=== PATIENT | female | born 1985 | race Caucasian/White ===

== ENCOUNTER → 2021-10-28 14:51 | Outpatient (CLI) | payer OTHER, SELFPAY ==
[2021-10-30 09:16] LABS: Varicella IgG Antibody 3178 index (Immune >165)
== END ==
PROVIDERS: PCP Nurse Practitioner Family; Referring Provider Family Medicine; Visit Provider Family Medicine
DX: O09.521 Supervision of elderly multigravida, first trimester (principal); Z3A.00 Weeks of gestation of pregnancy not specified
CPT/HCPCS: 36415; 86787; 87086

== ENCOUNTER → 2021-12-14 14:50 | Outpatient (CLI) | payer OTHER, SELFPAY ==
--- NOTE | 2021-12-14 15:11 | DIET.CONS ---
Dietary Consultation Note Assessment: 36y F identical twin currently at 18w gestation on first - single fetus, due May 15. Hx: Pt getting nauseous if with empty stomach. Pt not too fatigued, but noticing SOB when walking up hill. Taking supplement after lunch, was taking in morning but was making her nauseous. No constipation, 1 BM easy to pass daily. Pt cooks a lot with . Eating a few Tums each day because of new heartburn, pernell from spicy foods which she loves when not . 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 Ht: 5'8 Wt: 237# UBW: 230# pre- but under 200# prior to phD- desk and stress related Prior to phD program, pt was very active and exercised almost every day. Pt states increase in sedentary time at work desk and stress of advanced degree programs increased body weight. Was trying to eat 2-3meals no snacks daily, was exercising pre-: swim 5d/w and ran Pre- Food Recall: wakes 8-9am black coffee then move to lunch 12:30pm: leftovers D (5:30pm): curries, pasta, chicken cacciatore, carnitas, fish Food Recall: if any caffeine 8 or 12 oz deo B: cheerios with banana or oatmeal or quiche but not hungry then frequent small snacks through day: nuts, instant kayla with cooked lunchmeat hb egg and dereje Nutrients of Concern and Supplement review: Calcium: sliced cheese- Liguori cheddar or pauline kika, yogurt or glass milk Iron: 27mg in supp omega 3/DHA/ALA: taking stand alone supp and enjoys salmon and nuts Iodine: adequate in supp Nutrition Diagnosis: overweight in r/t undesirable coping mechanisms and physical inactivity aeb pt gained 30# in phD program due to stress eating and reduced physical activity, pt with 7# weight gain at 18w. Interventions: 1. Provided calcium content of foods handout with reccs to achieve 1000mg calcium per day through food and if needed supplements. Pt getting some calcium from Tums currently. Pt will log food for a few days and decide if she needs to supplement at all. 2. Discussed options for physical activity in such as walking (pernell 10 min after meals) and yoga. 3. Discussed moving back towards 3 meal and 1 snack eating pattern now that her nausea is lessening. Encouraged intake F/V and other fiber filled plant based foods. 4. Discussed limiting sodium intake to no more than 600mg at meals and having protein with every meal and snack. Monitoring/Evaluations: f/u as needed, 26w GTT to test for GDM - calcium Electronically Signed by: Ruth Urena 12/14/21 15:11 Clinical Dietitian [address] [id number]
== END ==
PROVIDERS: PCP Nurse Practitioner Family; Referring Provider Family Medicine; Visit Provider Family Medicine
DX: Z23 Encounter for immunization (principal)
CPT/HCPCS: 97802

== ENCOUNTER → 2022-01-21 15:30 | Outpatient (CLI) | payer OTHER, SELFPAY ==
--- NOTE | 2022-01-21 15:31 | DI.US.S_ITS ---
PROCEDURE: US OB FOLLOW UP INDICATIONS: Unable to visualize heart OUTSIDE/PRIOR DATING DATA: Last menstrual period (LMP): Known. LMP-based estimated date of delivery (KAL): Unknown. First dating scan (date and location): 01/01/2022. Estimated date of delivery (KAL) from first dating scan: 05/30/2022 TECHNIQUE: Real-time scanning was performed of the fetus, with image documentation and biometric measurements. Endovaginal scanning: Non COMPARISON: None. FINDINGS: General: A single living intrauterine gestation is present. Presentation: Vertex. Placenta: Placental position is posterior , without previa. Single deepest vertical pocket is 3.6 cm. heart rate: 152 beats per minute. Maternal cervical canal: Nonvisualized Anatomic survey: Normal cardiac outflow tracks are well visualized IMPRESSION: Single live intrauterine . heart rate 152 beats per minute Normal cardiac outflow tracts are well visualized Approved by: Jose Eduardo Castaneda M.D. on 01/21/2022 at 17:59
== END ==
PROVIDERS: PCP Nurse Practitioner Family; Referring Provider Family Medicine; Visit Provider Family Medicine
DX: Z36.2 Encounter for other antenatal screening follow-up (principal)
CPT/HCPCS: 76816

== ENCOUNTER → 2022-02-15 14:07 | Outpatient (CLI) | payer OTHER, SELFPAY ==
[2022-02-15 18:17] LABS: Add Manual Diff / Slide Review NO; Basophils Absolute Auto 0 /uL (0-100); Basophils Percent Auto 0.3 % (0-2); Eosinophils Absolute Auto 200 /uL (0-450); Eosinophils Percent Auto 1.1 % (2-4); Hematocrit 35.3 % (36-46); Hemoglobin 11.9 g/dL (12.0-16.0); Lymphocytes Absolute Auto 2000 /uL (1100-4500); Lymphocytes Percent Auto 14.1 % (25-40); Mean Corpuscular HGB Conc 33.8 % (30-36); Mean Corpuscular Hemoglobin 30.1 PG (26-34); Monocytes Absolute Auto 600 /uL (0-900); Neutrophils Absolute Auto 11300 /uL (1500-7000); Neutrophils Percent Auto 80.5 % (50-75); Platelet Count 324 X10^3/uL (150-400); Red Blood Cell Count 3.97 X10^6/uL (4.0-5.2); Red Cell Distribution Width 13.3 % (11.6-14.8)
[2022-02-15 18:41] LABS: GTT (PREG) 1 Hour PP 50gm Dose 104 mg/dL (76-139)
== END ==
PROVIDERS: PCP Nurse Practitioner Family; Referring Provider Family Medicine; Visit Provider Family Medicine
DX: Z34.82 Encounter for supervision of other normal pregnancy, second trimester (principal); Z3A.23 23 weeks gestation of pregnancy
CPT/HCPCS: 36415; 82950; 85025

== ENCOUNTER → 2022-04-16 12:03 | Outpatient (CLI) | payer OTHER, SELFPAY ==
[2022-04-17 12:51] LABS: Strep Grp B PCR NEG for Grp B Strep
== END ==
PROVIDERS: PCP Nurse Practitioner Family; Visit Provider Family Medicine
DX: Z36.85 Encounter for antenatal screening for Streptococcus B (principal)
CPT/HCPCS: 87653

== ENCOUNTER 2022-05-19 10:55 | Outpatient (CLI) | payer OTHER, SELFPAY ==
--- NOTE | 2022-05-19 11:31 | DI.US.S_ITS ---
PROCEDURE: US OB LIMITED INDICATIONS: POST DATES; EFW, MARGE OUTSIDE/PRIOR DATING DATA: Last menstrual period (LMP): Unknown. LMP-based estimated date of delivery (KAL): Not applicable. First dating scan (date and location): 01/01/2023. Estimated date of delivery (KAL) from first dating scan: 05/10/2022. The calculations are made using the sonographic KAL of 05/10/2022. TECHNIQUE: Real-time scanning was performed of the fetus, with image documentation and biometric measurements. Endovaginal scanning: Not performed COMPARISON: None. FINDINGS: General: A single living intrauterine gestation is present. Presentation: Vertex. Placenta: Placental position is left fundal , without previa. Amniotic fluid index: 6.5 cm, normal range is 5-24 cm. Single deepest vertical pocket is 4.2 cm. heart rate: 168 beats per minute. Maternal cervical canal: 4.2 cm long. Normal lower limit is 2.5 cm. biometrics: Biparietal diameter: 9.4 centimeters, 38 weeks Head circumference: 34.4 centimeters, 39 weeks 6 days Abdominal circumference: 35 centimeters, 39 weeks Femur length: 7.6 centimeters, 38 weeks 5 days Clinically estimated gestational age: 41 weeks 2 days Composite gestational age from present scan: 38 weeks 6 days Estimated weight and percentile: 3621 grams. Percentage unavailable. Other: Not applicable. IMPRESSION: Single living intrauterine at 41 weeks 2 days, KAL of 08/03/2021. MARGE borderline low, measuring 6.5 centimeters, max pocket 4.2 centimeters. Estimated weight 3621 grams. We strive to produce accurate, complete, and clear reports of imaging services. To assist us in improving patient care, this report was composed using standard report templates and voice recognition software. Therefore, it may contain abnormal punctuation, insertions and/or omissions. Occasional wrong-word or sound-alike substitutions may occur. Though we review the report and make efforts to correct it, we do recommend that the report be read carefully in proper context to recognize any text inaccuracies. Dictated by: Cachorro Quezada M.D. on 05/19/2022 at 12:30 Approved by: Cachorro Quezada M.D. on 05/19/2022 at 12:35
--- NOTE | 2022-05-19 11:49 | P.TNLD_ITS ---
Visit Information Visit Information Date of evaluation: 05/19/22 Primary OB Provider: Kristin Verde Reason for Evaluation: Yes non-stress test non-stress test reason: other (post- dates) Comments/Additional reasons for admission: 37yo at 40w6d here for post-dates NST. She is feeling her baby move regularly. No LOF, vaginal bleeding, contractions. Fundal height was noted to be 35cm in clinic today as well. [facility] Medical History Asthma Depression Eczema Family history of identical twins Rib injury Shingles Surgical History [place] teeth extracted Family History Grandmother Uterine cancer Grandfather Heart disease Heart attack Mother Hypotension Osteopenia Grandmother Depression Glaucoma Quadriplegia Grandfather Parkinsons disease Father Depression Arthritis Sister Asthma Grandmother Bipolar disorder Social History marital status: number of children: 0 household members: spouse lives independently: Yes housing: house pets and animals: Yes (1 dog) education level: other occupational status: employed current occupational exposures/hazards: No special vini needs: No travel history: recent seatbelt use: always helmet use: Yes water heater temp set < 120 deg: Yes working smoke detector in home: Yes fire extinguisher in home: Yes carbon monox detector in home: Yes firearms in home: No do you feel safe at home: Yes Smoking Status: Never smoker second hand exposure: No alcohol intake: former substance use type: marijuana during the past year weight has: increased > 10 lbs well-balanced diet: daily or most days daily servings fruits/ve or more times/day caffeine: Yes Type(s) of exercise: bicycling, swimming, other and yoga frequency: 3-4 times per week Evaluation Evaluation Baseline heart rate: 120 Variability: Moderate (11-25) monitor accelerations: Present Monitor Decelerations: Absent Category of Tracing: Reactive Diagnosis, Plan/Disposition Final Diagnosis (1) Post-dates : Status: Acute (2) Size of fetus inconsistent with dates in third trimester: Status: Acute Plan/Disposition Plan: 37yo at 40w6d here for NST for post-dates. Also obtaining growth u/s for size < dates and post-dates. NST reassuring. Growth u/s with appropriate growth, MARGE 6.5. Recommend repeat NST and MARGE on 05/21. Stable for discharge home. OB Disposition: home
== END 2022-05-19 11:45 | disposition home or self-care (01) ==
LOC: OB 05-24 15:53
PROVIDERS: PCP Nurse Practitioner Family; Referring Provider Family Medicine; Visit Provider Family Medicine
DX: O48.0 Post-term pregnancy (principal); O26.843 Uterine size-date discrepancy, third trimester; Z3A.40 40 weeks gestation of pregnancy
CPT/HCPCS: 59025; 76815; G0378; G0379

== ENCOUNTER 2022-05-21 08:57 | Outpatient (CLI) | payer OTHER, SELFPAY ==
--- NOTE | 2022-05-21 09:22 | DI.US.S_ITS ---
PROCEDURE: US OB LIMITED INDICATIONS: 41 weeks gestation, MARGE OUTSIDE/PRIOR DATING DATA: Last menstrual period (LMP): Unknown LMP-based estimated date of delivery (KAL): Under known First dating scan (date and location): 01/01/2022 Estimated date of delivery (KAL) from first dating scan: 05/10/2022 The calculations are made using the working KAL of 05/10/2022 TECHNIQUE: Real-time scanning was performed of the fetus, with image documentation and biometric measurements. Endovaginal scanning: Not indicated COMPARISON: [facility], , OB LIMITED, 05/19/2022, 11:55. FINDINGS: General: A single living intrauterine gestation is present. Presentation: Vertex Amniotic fluid index: 9.0 cm, normal range is 5-24 cm. Single deepest vertical pocket is 3.5 cm. heart rate: 123 beats per minute. Maternal cervical canal: 1.9 cm long. Normal lower limit is 2.5 cm. Clinically estimated gestational age: 41 weeks, 4 days. Other: Not applicable. IMPRESSION: Single live intrauterine gestation with fetus in vertex presentation. heart rate is 123 beats per minute. MARGE equals 9.0 cm with a deepest pocket measures 3.5 cm in size. We strive to produce accurate, complete, and clear reports of imaging services. To assist us in improving patient care, this report was composed using standard report templates and voice recognition software. Therefore, it may contain abnormal punctuation, insertions and/or omissions. Occasional wrong-word or sound-alike substitutions may occur. Though we review the report and make efforts to correct it, we do recommend that the report be read carefully in proper context to recognize any text inaccuracies. Dictated by: Jemal Lin M.D. on 05/21/2022 at 10:26 Approved by: Jemal Lin M.D. on 05/21/2022 at 10:28
--- NOTE | 2022-05-21 10:30 | P.TNLD_ITS ---
Visit Information Visit Information Date of evaluation: 05/21/22 Reason for Evaluation: Yes non-stress test Comments/Additional reasons for admission: 37yo at 41w1d here for post-dates NST. She is feeling her baby move regularly. No LOF, vaginal bleeding, consistent contractions. She did lose her mucus plug. [facility] Medical History Asthma Depression Eczema Family history of identical twins Rib injury Shingles Surgical History [place] teeth extracted Family History Grandmother Uterine cancer Grandfather Heart disease Heart attack Mother Hypotension Osteopenia Grandmother Depression Glaucoma Quadriplegia Grandfather Parkinsons disease Father Depression Arthritis Sister Asthma Grandmother Bipolar disorder Social History marital status: number of children: 0 household members: spouse lives independently: Yes housing: house pets and animals: Yes (1 dog) education level: other occupational status: employed current occupational exposures/hazards: No special vini needs: No travel history: recent seatbelt use: always helmet use: Yes water heater temp set < 120 deg: Yes working smoke detector in home: Yes fire extinguisher in home: Yes carbon monox detector in home: Yes firearms in home: No do you feel safe at home: Yes Smoking Status: Never smoker second hand exposure: No alcohol intake: former substance use type: marijuana during the past year weight has: increased > 10 lbs well-balanced diet: daily or most days daily servings fruits/ve or more times/day caffeine: Yes Type(s) of exercise: bicycling, swimming, other and yoga frequency: 3-4 times per week Evaluation Evaluation Baseline heart rate: 150 Variability: Moderate (11-25) monitor accelerations: Present Monitor Decelerations: Absent Diagnosis, Plan/Disposition Final Diagnosis (1) Post-dates : Status: Acute Plan/Disposition Plan: 37yo at 41w1d here for post-dates NST. NST reactive. MARGE improved from 2 days ago. Continue with plan for IOL on 05/23 if no labor prior. OB Disposition: home
== END 2022-05-21 10:30 | disposition home or self-care (01) ==
LOC: LABOR 12:35 → OB 05-24 15:51
PROVIDERS: PCP Nurse Practitioner Family; Referring Provider Family Medicine; Visit Provider Family Medicine
DX: O48.0 Post-term pregnancy (principal); Z3A.41 41 weeks gestation of pregnancy
CPT/HCPCS: 59025; 76815; G0378; G0379

== ENCOUNTER 2022-05-23 19:51 | Inpatient (IN) | payer OTHER, SELFPAY ==
[2022-05-23 20:38] VITALS: BP 116/68
[2022-05-23 21:48] LABS: Add Manual Diff / Slide Review NO; Basophils Absolute Auto 0 /uL (0-100); Basophils Percent Auto 0.3 % (0-2); Eosinophils Absolute Auto 100 /uL (0-450); Eosinophils Percent Auto 0.9 % (2-4); Hematocrit 33.2 % (36-46); Hemoglobin 11.4 g/dL (12.0-16.0); Lymphocytes Absolute Auto 2200 /uL (1100-4500); Lymphocytes Percent Auto 18.2 % (25-40); Mean Corpuscular HGB Conc 34.3 % (30-36); Mean Corpuscular Hemoglobin 30.8 PG (26-34); Mean Corpuscular Volume 89.9 fL (80-100); Monocytes Absolute Auto 600 /uL (0-900); Neutrophils Absolute Auto 9200 /uL (1500-7000); Neutrophils Percent Auto 75.6 % (50-75); Platelet Count 244 X10^3/uL (150-400); Red Blood Cell Count 3.69 X10^6/uL (4.0-5.2); Red Cell Distribution Width 13.2 % (11.6-14.8); White Blood Cell Count 12.1 X10^3/uL (4.5-11.0)
[2022-05-23] MEDS: miSOPROStoL 25 MCG TABLET VAG (22:14)
[2022-05-24] VITALS (12 sets, daily range): BP systolic 72–130; BP diastolic 52–94; PULSE 89–119; RESP 14–20; TEMP 35.9; O2SAT 96–100
--- NOTE | 2022-05-24 | PATH_ITS ---
[facility] Accession Number: [id number] No. of containers..01 Tissue . 01 Material submitted: . placenta - PLACENTA . 01 Diagnosis: Placenta, Delivery: Mature renee placenta (506 grams) with single infarct and intervillous thrombus and focal perivillous fibrin deposition. - Negative for villitis and neoplasia. Trivascular umbilical cord. - Negative for funisitis, thrombosis, and true knots. membranes negative for chorioamnionitis and meconium staining. MRV 05/27/2022 1740 Local . 01 Electronically signed: . Leyla Alejo MD, Pathologist NPI- [id number] . 01 Gross description: . The specimen is received in formalin labeled with the patient's name, , and placenta, and consists of a discoid renee placenta with a trimmed weight 506 grams and measuring 20.7 x 17.8 x 1.4 cm with no accessory lobes identified. . The membranes are acevedo and translucent with no acevedo areas of thickening grossly identified. The membranes insert and are diffusely ruptured at the margin. . The umbilical cord measures 47.9 cm in length by 1.0 cm in average diameter. The cord inserts centrally and has a leftward coil with an index of approximately 2 twists per 5 cm. Sectioning reveals unremarkable trivascular architecture with no knots or lesions grossly identified. . The surface is blue-hamm with normal arborizing vasculature and no areas of discoloration or lesions identified. . The maternal surface is apparently complete with no areas of discoloration of adherent hemorrhage identified. Sectioning reveals a pale acevedo firm area located eccentrically measuring 2.1 x 1.7 x 0.9 cm. This discolored area occupies less than 10% of the cut surface. The remaining cut surface is red-brown and spongy. . Manager Emergency Department sections are submitted as follows: A1: Cord. A2: Membrane roll. A3-A4: Full thickness cut surface discoloration. A5-A7: Full thickness central normal sections. ([id number]) /MRV 05/25/20224 Local . 01 Pathologist provided ICD-10: O43.90 . 01 CPT . 081487 Specimen Comment: A courtesy copy of this report has been sent to [phone] Performed at: 01 [facility] [address] [place] [id number] MD Matthew Guzman MD Phone: [phone]
[2022-05-24] MEDS: miSOPROStoL 25 MCG TABLET VAG (03:06)
[2022-05-24] MEDS: LACTATED RINGERS 1,000 ML 100 ML IV (09:05)
[2022-05-24] MEDS: OXYTOCIN PREMIX 30 UNIT/500 ML PLAST..BAG IV (09:05)
--- NOTE | 2022-05-24 12:22 | P.HPOB_ITS ---
OB HPI Date/Time Date of admission: 05/23/22 Date Patient Seen: 05/24/22 History of Present Condition Chief complaint: KAL Calculator Estimated Delivery Date Method Current WG Current Estimate 05/13/22 Manual 41w 4d Final KAL - MANOLO Other Estimates 05/13/22 LMP (Certain) 41w 4d 05/18/22 Ultrasound #1 40w 6d Estimated Gestational Age (weeks): 41w4d : 1 Para: 0 Narrative: Pt is a 37yo at 41w4d here for post-dates IOL. Pt is feeling her baby move regularly. No LOF. Minimal spotting after cytotec last night. The pts has been uncomplicated. care: good care, initiated at week # (11) and pounds weight gain (32) Dating criteria OB: LMP confirmed by 1st trimester US Ultrasounds: normal 1st trimester US and normal mid trimester US Obstetrical complications: none Medical complications OB: none Preadmission Labs Last OB Lab Results: Blood Type A Negative 05/23/22 21:25 Antibody Screen Negative 05/23/22 21:25 Hematocrit 33.2 % (36-46) L 05/23/22 21:25 Hemoglobin 11.4 g/dL (12.0-16.0) L 05/23/22 21:25 Varicella-Zoster IgG Antibody 3178 index (Immune >165) 10/28/21 15:05 Glucose 1 Hour 104 mg/dL (76-139) 02/15/22 15:45 Group B Streptococcus (PCR) Neg for grp b strep 04/16/22 12:03 Genetic Screens: Cell-free DNA: Normal Evaluation Evaluation Baseline heart rate: 145 Variability: Moderate (11-25) monitor accelerations: Present Monitor Decelerations: Absent Contraction Frequency (minutes): 3 Uterine Contraction Intensity: Strong/Firm Status: Category l Dilation (cm): 3 Effacement (%): 90 Dilation: 3-4 cm Effacement: >/=80% station: -1 Position of cervix: posterior Consistency: soft Garcia score: 9 PFSH Medical History Asthma Depression Eczema Family history of identical twins Rib injury Shingles Surgical History [place] teeth extracted Family History Grandmother Uterine cancer Grandfather Heart disease Heart attack Mother Hypotension Osteopenia Grandmother Depression Glaucoma Quadriplegia Grandfather Parkinsons disease Father Depression Arthritis Sister Asthma Grandmother Bipolar disorder Social History marital status: number of children: 0 household members: spouse lives independently: Yes housing: house pets and animals: Yes (1 dog) education level: other occupational status: employed current occupational exposures/hazards: No special vini needs: No travel history: recent seatbelt use: always helmet use: Yes water heater temp set < 120 deg: Yes working smoke detector in home: Yes fire extinguisher in home: Yes carbon monox detector in home: Yes firearms in home: No do you feel safe at home: Yes Smoking Status: Never smoker second hand exposure: No alcohol intake: former substance use type: marijuana during the past year weight has: increased > 10 lbs well-balanced diet: daily or most days daily servings fruits/ve or more times/day caffeine: Yes Type(s) of exercise: bicycling, swimming, other and yoga frequency: 3-4 times per week Meds Home Medications and Allergies Home Medications Medication Instructions Recorded Confirmed Type fluticasone 250 mcg-salmeterol 50 1 inh inhalation BID 10/19/21 05/23/22 History mcg/dose blistr powdr for inhalation prenat.vits,cassandra,[id number] 1 tab PO DAILY 10/19/21 05/23/22 History Allergies Allergy/AdvReac Type Severity Reaction Status Date / Time Sulfa (Sulfonamide Allergy Severe Anaphylaxis Verified 05/23/22 20:35 Antibiotics) Penicillins Allergy Intermediate Rash Verified 05/23/22 20:35 Opioids - Morphine Analogues AdvReac Intermediate Vomiting Verified 05/23/22 20:35 OB Exam Narrative Exam Narrative: Gen: NAD, sitting comfortably in bed, appears well CV: RRR, no murmurs Resp: clear to auscultation bilaterally Abd: soft, nontender, gravid Ext: no edema Objective Labs 05/23/22 21:25 Labs: Laboratory Results - last 24 hr 05/23/22 05/23/22 21:25 21:25 WBC 12.1 H RBC 3.69 L Hgb 11.4 L Hct 33.2 L MCV 89.9 MCH 30.8 MCHC 34.3 RDW 13.2 Plt Count 244 Neut % (Auto) 75.6 H Lymph % (Auto) 18.2 L [place] % (Auto) 5.0 Eos % (Auto) 0.9 L Baso % (Auto) 0.3 Neut # (Auto) 9200 H Lymph # (Auto) 2200 [place] # (Auto) 600 Eos # (Auto) 100 Baso # (Auto) 0 Blood Type A Negative Antibody Screen Negative Assessment and Plan Assessment and Plan Assessment and Plan narrative: 37yo at 41w4d here for post-dates IOL. uncomplicated. Rh negative, GBS negative. - Expectant management, anticipate - FHT reassuring - Cytotec x2 last night. AROM performed this morning after informed consent with clear fluid. Plan to initiate pitocin. - Natural methods for pain control
[2022-05-24] MEDS: fentaNYL 100 MCG/2 ML INJ 50 MCG IV (15:57)
--- NOTE | 2022-05-24 16:27 | PM.PREOP ---
Pre-operative Note Interval Note History & Physical reviewed/Exam performed by Physician: Yes Changes to H&P: No
[2022-05-24 16:28] LABS: Hematocrit 32.4 % (36-46); Hemoglobin 10.9 g/dL (12.0-16.0)
[2022-05-24] MEDS: CEFAZOLIN 2 GM/100 ML PREMIX 100 ML IV (16:40)
--- NOTE | 2022-05-24 16:44 | SUR.OPER ---
Lithotomy on padded OR bed, head on pillow, arms secured on padded arm boards at <90 degrees abduction. Legs secured in padded yellow fins stirrups.
[2022-05-24] MEDS: LACTATED RINGERS 1,000 ML 999 ML IV (16:53)
[2022-05-24] MEDS: METHYLERGONOVINE 0.2 MG/ML VIAL IM (16:59)
--- NOTE | 2022-05-24 17:08 | SUR.OPER ---
Bakri balloon with 250mL of NaCl inserted in uterus during surgery.
[2022-05-24] MEDS: ONDANSETRON 4 MG/2 ML INJ IV (17:48)
--- NOTE | 2022-05-24 17:54 | PM.GYNOP.1 ---
Operative Date/Time/Diagnoses Date of procedure: 05/24/22 Time of procedure: 17:54 Pre-op diagnosis: Uterine inversion Retained placenta Post-op diagnosis: same Procedure & Clinicians Procedure: Procedures Operation Date: 05/24/22 17:15 Actual Procedure Side Surgeon p Dilation and Curettage Dipika Madrigal MD Replacement of inverted uterus Suction D&C Indications: Uterine inversion Retained placenta Surgeon: Dipika Madrigal Jet Dyeing Machine Operator: Kristin Verde Anesthesia Type: General Operative Notes Findings: Membranes stuck to the fundus of the uterus. The uterus was still inverted, but inside the vagina Closure Type: not applicable Specimen(s): products of conception (membranes) Applied: catheter (Cifuetnes placed at end of the procedure), drain(s) (Bakri balloon placed) and other (Betadine-moistened vaginal packing) Estimated blood loss (mL): 800 Blood products transfused: packed red blood cells (2 units) Procedure in detail: The patient was taken emergently to the operating room due to uterine inversion. After general endotracheal anesthesia was achieved, the patient was placed in the dorsal lithotomy position, and prepped and draped in the usual sterile fashion. The bladder was emptied with a red rubber catheter. The uterus was exteriorized outside the vagina the membranes that could be visualized were removed with a ring forcep. A ring forceps with a moistened lap sponge was then placed in the middle of the fundus of the uterus and with pressure behind the pubic symphysis, the uterus was slowly pushed back into the uterus and the inversion was reversed. A # 12 plastic curette then passed easily into the endometrial cavity. Several passes with suction revealed some membranes and clots. A Bakri balloon was placed and filled with 200 cc of sterile water. Due to the cervix being so dilated, a Betadine moistened vaginal packing was placed to keep the Bakri balloon inside the uterus. This was connected to a grenade to keep track of drainage. A second-degree vaginal/perineal laceration and a right labial first-degree laceration were repaired in the usual fashion. Hemostasis was achieved. There was 800 cc of blood loss including clots that were in the vagina when the patient was prepped. 2 units of packed red blood cells were given in the operating room. Sponge, lap, and instrument counts were correct x2. Complications: none Post-operative Condition: stable Disposition: PACU Plan for aftercare: To the Center after recovery
[2022-05-24] MEDS: fentaNYL 100 MCG/2 ML INJ IV (18:09)
[2022-05-24 18:56] LABS: Add Manual Diff / Slide Review NO; Basophils Absolute Auto 100 /uL (0-100); Basophils Percent Auto 0.3 % (0-2); Eosinophils Absolute Auto 0 /uL (0-450); Hematocrit 32.8 % (36-46); Lymphocytes Absolute Auto 700 /uL (1100-4500); Lymphocytes Percent Auto 2.6 % (25-40); Mean Corpuscular HGB Conc 33.7 % (30-36); Mean Corpuscular Hemoglobin 29.8 PG (26-34); Mean Corpuscular Volume 88.6 fL (80-100); Monocytes Absolute Auto 600 /uL (0-900); Neutrophils Absolute Auto 27600 /uL (1500-7000); Neutrophils Percent Auto 95.1 % (50-75); Platelet Count 250 X10^3/uL (150-400); Red Cell Distribution Width 13.9 % (11.6-14.8)
--- NOTE | 2022-05-24 19:51 | P.PCNOB_ITS ---
Labor & Delivery Delivery date: 05/24/22 Cervical ripening method: per misoprostal protocol Induction method: AROM Delivery augmentation: pitocin Delivery monitor: external FHT and external uterine Route of delivery: Episiotomy description: None L&D Laceration Description: Perineal - 2nd Degree and Labial (right) Quantitative Blood Loss: 1,500 Anesthesia Type: None Narrative: PROCEDURE: at 41w4d presented for post-dates IOL and was admitted to Labor and Delivery. She received cytotec. AROM was then performed with clear fluid at 9:11am. Pitocin was initiated, and then discontinued quickly due to adequate contractions. The patient progressed through the 1st stage over 4 hours. Pain was controlled with natural methods. The patient progressed through the 2nd stage over 1 hour and delivered a viable male with APGARs 9/9 at 15:35 via . Nuchal cord x1 was reduced at the perineum. The cord was cut and clamped after it stopped pulsating. Gentle traction was applied to the umbilical cord, with counterpressure on the uterus. The placenta appeared to be delivering from the vagina, however it was noted that it remained attached to an inverted uterus. The pt was initiated on nitrous oxide. Attempted to removed the placenta from the uterus, however was not able to create a plane for dissection. Where the placenta had been probed then began to abrupt with a significant hematoma forming. Dr Madrigal was consulted urgently. The hematoma was then opened, with 1500cc of blood produced. A plane for placental removal was then noted. The placenta was then removed, however in fragments, with portions of amniotic membrane still attached to the uterus. The pt was given 50mcg of Fentanyl. Direct pressure was applied to the fundus of the uterus, and the uterus was pushed back into the abdomen in an attempt to revert it to correct orientation. Unfortunately, the uterus returned to the abdomen, however remained inverted. The decision was then made to go to the OR to reduce the inversion, and perform D&C for removal of the amniotic membranes/uterine remna nts. The perineum and vagina were inspected with 2nd degree perineal and right labial lacerations that were repaired in the OR. Due to the significant volume of blood loss, 2 Units of PRBCs were ordered, one of which was given prior to arrival in the OR. The pt was feeling lightheaded and noted to be tachycardic in the 110s. Her BP remained > 90 systolic. She was given IVF bolus as well. She was stable upon transfer to the OR. Needle and sponge counts were correct.? The vagina was inspected and no items were left in situ. PREPROCEDURE DIAGNOSIS: Intrauterine at 41w4d GBS negative RH negative POSTPROCEDURE DIAGNOSIS: Intrauterine at 41w4d, delivered Same as preprocedure Retained products of conception Uterine inversion hemorrhage Baby 1: Infant gender: Male Presentation: vertex Position: Left Occiput Anterior Cord Vessel Description: 3 Vessels and Nuchal Cord score (1 min): 9 score (5 min): 9 weight: 8 lb 1.032 oz
[2022-05-24] MEDS: KETOROLAC 30 MG/ML VIAL IV (20:22)
[2022-05-24] MEDS: ACETAMINOPHEN 325 MG TABLET 650 MG PO (20:37)
[2022-05-25] MEDS: KETOROLAC 30 MG/ML VIAL IV ×2 (02:47→08:45)
[2022-05-25] MEDS: ACETAMINOPHEN 325 MG TABLET 650 MG PO ×4 (02:48→21:29)
[2022-05-25 06:12] LABS: Add Manual Diff / Slide Review NO; Basophils Absolute Auto 0 /uL (0-100); Basophils Percent Auto 0.2 % (0-2); Eosinophils Absolute Auto 0 /uL (0-450); Hematocrit 21.7 % (36-46); Hemoglobin 7.3 g/dL (12.0-16.0); Lymphocytes Absolute Auto 1300 /uL (1100-4500); Lymphocytes Percent Auto 6.9 % (25-40); Mean Corpuscular HGB Conc 33.8 % (30-36); Mean Corpuscular Hemoglobin 30.2 PG (26-34); Mean Corpuscular Volume 89.3 fL (80-100); Monocytes Absolute Auto 900 /uL (0-900); Monocytes Percent Auto 4.6 % (3-14); Neutrophils Absolute Auto 17100 /uL (1500-7000); Neutrophils Percent Auto 88.3 % (50-75); Platelet Count 185 X10^3/uL (150-400); Red Blood Cell Count 2.43 X10^6/uL (4.0-5.2); Red Cell Distribution Width 14.2 % (11.6-14.8); White Blood Cell Count 19.4 X10^3/uL (4.5-11.0)
[2022-05-25] MEDS: PRENATAL VIT,CALC/IRON/FOLIC 1 TABLET 1 TAB PO (08:46)
[2022-05-25] MEDS: DOCUSATE 100 MG CAPSULE PO ×2 (08:46→21:29)
[2022-05-25] MEDS: OXYTOCIN PREMIX 30 UNIT/500 ML PLAST..BAG 200 UNIT IV (08:47)
--- NOTE | 2022-05-25 14:58 | P.PNOB_ITS ---
Subjective - OB Subjective Date Patient Seen: 05/25/22 Interval history: The pt reports that she is doing well overall. Her pain has been well controlled. She has not yet urinated due to thacker in place, and has not yet passed flatus. She has not yet ambulated due to thacker and Bakri. She is with improving latch, and is happy with her progress there. Exam Vital Signs (past 8 hours): Oxygen Delivery Method Room Air Narrative Exam Narrative: Gen: NAD, sitting comfortably in bed, appears well CV: RRR, no murmurs Resp: clear to auscultation bilaterally Abd: soft, appropriately tender, fundus firm and below the umbilicus, nondistended Ext: no edema Objective Labs 05/25/22 05:50 Labs: Laboratory Results - last 24 hr 05/23/22 05/24/22 05/24/22 21:25 16:20 18:50 WBC 29.0 H D RBC 3.70 L Hgb 10.9 L 11.0 L Hct 32.4 L 32.8 L MCV 88.6 MCH 29.8 MCHC 33.7 RDW 13.9 Plt Count 250 Neut % (Auto) 95.1 H Lymph % (Auto) 2.6 L Duval % (Auto) 2.0 L Eos % (Auto) 0.0 L Baso % (Auto) 0.3 Neut # (Auto) 62354 H Lymph # (Auto) 700 L Duval # (Auto) 600 Eos # (Auto) 0 Baso # (Auto) 100 Blood Type A Negative Antibody Screen Negative Crossmatch See Detail 05/25/22 05:50 WBC 19.4 H RBC 2.43 L Hgb 7.3 L Hct 21.7 L MCV 89.3 MCH 30.2 MCHC 33.8 RDW 14.2 Plt Count 185 Neut % (Auto) 88.3 H Lymph % (Auto) 6.9 L [place] % (Auto) 4.6 Eos % (Auto) 0.0 L Baso % (Auto) 0.2 Neut # (Auto) 84602 H Lymph # (Auto) 1300 Duval # (Auto) 900 Eos # (Auto) 0 Baso # (Auto) 0 Blood Type Antibody Screen Crossmatch Assessment & Plan Plan Comments: Pt is a 37yo PPD#1 s/p with uterine inversion and retained POC, requi ring correction of uterine inversion and D&C in the OR after delivery, with resultant hemorrhage. Bakri placed after uterus replaced with minimal output, only approximately 20cc. H/H with significant drop after 2 units PRBCs, however does not require repeat transfusion. Pt is feeling r emarkably well. - Plan to deflate Bakri, 30cc/hr, while running pitocin at 100cc/hr in 30 unit/1L bag - Continue thacker until after Bakri removed and bleeding shown to be stable - Repeat tomorrow morning - Continue support Time Spent With Patient Time: Total time spent is greater than 50% in coordination of care (as documented) at patient's floor/unit and/or counseling patient: Time with patient: 25 - 35 minutes
[2022-05-25] MEDS: DERMOPLAST SPRAY 20% 60 ML 1 SPRAY TOP (21:28)
[2022-05-25] MEDS: IBUPROFEN 600 MG TABLET PO (21:28)
[2022-05-26] MEDS: IBUPROFEN 600 MG TABLET PO ×3 (03:01→14:50)
[2022-05-26] MEDS: ACETAMINOPHEN 325 MG TABLET 650 MG PO ×3 (03:01→14:50)
[2022-05-26 06:29] LABS: Add Manual Diff / Slide Review NO; Basophils Absolute Auto 100 /uL (0-100); Basophils Percent Auto 0.6 % (0-2); Eosinophils Absolute Auto 100 /uL (0-450); Eosinophils Percent Auto 1.1 % (2-4); Lymphocytes Absolute Auto 2800 /uL (1100-4500); Lymphocytes Percent Auto 22.8 % (25-40); Mean Corpuscular HGB Conc 34.1 % (30-36); Mean Corpuscular Volume 90.7 fL (80-100); Monocytes Absolute Auto 600 /uL (0-900); Monocytes Percent Auto 5.1 % (3-14); Neutrophils Absolute Auto 8800 /uL (1500-7000); Neutrophils Percent Auto 70.4 % (50-75); Platelet Count 164 X10^3/uL (150-400); Red Blood Cell Count 2.13 X10^6/uL (4.0-5.2); Red Cell Distribution Width 14.7 % (11.6-14.8); White Blood Cell Count 12.5 X10^3/uL (4.5-11.0)
[2022-05-26 06:33] LABS: Hematocrit 19.3 % (36-46); Hemoglobin 6.6 g/dL (12.0-16.0)
[2022-05-26] MEDS: PRENATAL VIT,CALC/IRON/FOLIC 1 TABLET 1 TAB PO (09:24)
[2022-05-26] MEDS: DOCUSATE 100 MG CAPSULE PO (09:24)
[2022-05-26 17:10] VITALS: BP 137/72; PULSE 62; RESP 15; TEMP 36.8
--- NOTE | 2022-05-28 06:25 | P.DS_ITS ---
Discharge Providers Provider Date of admission: 05/23/22 19:51 Discharge Date: 05/26/22 Primary care physician: Bushra Esqueda, MSN, JAVA DEVELOPER CONSULTANT, POULTRY DEBEAKER-BC Consults: 05/25/22 17:43 Consult to Testing Coordinator Routine Comment: Discharge provider: Dipika Madrigal MD Summary Hospital Course Date Patient Seen: 05/26/22 Time Patient Seen: 13:00 Diagnoses: 41-4/7 weeks gestation Cervical ripening with misoprostol Induction of labor with Pitocin Artificial rupture of membranes Spontaneous vaginal delivery Uterine inversion Retained placenta D&C in the operating room Replacement of uterus in the operating room Acute blood-loss anemia Hospital Course: Patient is a 37-year-old 1 para 1 who presented on May 23, 2022 for cervical ripening with misoprostol. She received 2 doses overnight. In the morning her cervix was favorable. She was started on Pitocin. Artificial rupture membranes was performed. She progressed to complete dilation and had a spontaneous vaginal delivery. With delivery of the placenta there was a uterine inversion and placenta would not separate from the uterus. The amniotic sac was opened and blood drained and most of the placenta was peeled off of the fundus of the uterus. The uterus was replaced in the vagina but was still inverted. The patient was taken to the operating room. The remainder of the membranes were removed from the uterus. The uterus was turned inside out and replaced in the vagina. The patient received 2 units of blood in the operating room. The second-degree vaginal/perineal laceration and first-degree right labial laceration were repaired in the operating room, Her postoperative course was fairly unremarkable. She did not receive any more blood. She was not symptomatic from the anemia. Her hematocrit did drop to 22.8 on day # 1 and then down to 19.8 on day # 2. The patient was not tachycardic or dizzy upon standing. She was discharged home on day # 2. She was to use stool softeners and iron supplements. was going well. She will follow-up with Dr. Verde. Peripartum Data Delivery Method: Natural Vaginal Laceration Description: Perineal - 2nd Degree, Vaginal - 2nd Degree and Labial (right) Episiotomy description: None Procedures: Misoprostol cervical ripening Pitocin inductio of labor Artificial rupture of membranes Spontaneous vaginal delivery Removal of placenta from inverted uterine Replacement of uterus in the operating room Suction D&C Second-degree perineal/vaginal and first-degree labial laceration repair complications: retained placenta and other (uterine inversion) [place] 1: Gender: Male Disposition of : home Status at Discharge Cognitive/behavioral status at discharge: oriented Functional status at discharge: independent ambulation Overall status at discharge: patient is progressing back to baseline Time Spent with Patient Time attestation: Total time spent providing and/or coordinating discharge services: Time spent: Greater than 30 minutes Objective Labs 05/26/22 06:08 Exam Vital Signs (past 8 hours): Oxygen Delivery Method Room Air Narrative Exam Narrative: Generally: Patient is sitting up in bed, no acute distress Fundus: Firm at U -2 Extremities: 1+ edema, negative Homans Discharge Plan Discharge Plan Patient Disposition: Home Provider Discharge Comment: Call with fever, chills, bleeding vaginally more than a pad in an hour Iron supplement Ibuprofen 600 mg every 6 hours as needed Or Naprosyn twice a day Stool softener Push oral fluids Discharge orders & Medications Prescriptions: Continued prenat.vits,cassandra,[id number]-yrrat Tablet 1 tab PO DAILY fluticasone propion-salmeterol 250-50 mcg/dose blister with device 1 inh inhalation BID Follow up/Referrals: Kristin Verde MD [Physician] - (Follow-up with Dr. Verde for 6 week exam: July 09 @ 11:30am) Diet/Activity/Treatments Diet: Regular Activity: Nothing in the vagina for 6 weeks Skin/Wound/Dressing Care Report to your healthcare provider any signs of infection, such as:: chills, fever, increased pain and unusual drainage Visit Report/Discharge Packet Instructions: DI for Hemorrhage, DI for Labor and Delivery, Vaginal Stand Alone Forms: Discharge: Care, Patient Portal/API, Stroke Signs & Symptoms, Surgery Discharge Discharge Data Primary Care Provider: Bushra Esqueda Discharges patient from system. Discharge Date/Time: 05/26/22 15:05
== END 2022-05-26 15:05 | disposition home or self-care (01) | DRG 768 ==
PROVIDERS: Obstetrics & Gynecology; Admitting Provider Family Medicine; PCP Nurse Practitioner Family; Referring Provider Family Medicine; Visit Provider Family Medicine
PROC: 0US97ZZ Reposition Uterus, Via Natural or Artificial Opening (ICD-10-PCS; CPT 58120; principal; 2022-05-24 17:15)
DX: O48.0 Post-term pregnancy (principal); Z37.0 Single live birth; O71.2 Postpartum inversion of uterus; O72.2 Delayed and secondary postpartum hemorrhage; D62 Acute posthemorrhagic anemia; O99.02 Anemia complicating childbirth; Z3A.41 41 weeks gestation of pregnancy; O70.1 Second degree perineal laceration during delivery; O70.0 First degree perineal laceration during delivery
CPT/HCPCS: 36415; 36430; 59025; 59050; 59200; 59400; 76815; 85014; 85018; 85025; 86644; 86850; 86900; 86901; P9016; G0379; J0690; J1100; J1885; J2210; J2250; J2405; J2590; J3010

== ENCOUNTER → 2022-10-01 19:28 | Outpatient (CLI) | payer OTHER, SELFPAY ==
[2022-10-01 21:06] LABS: Urine N gonorrhoeae NOT DETECTED
[2022-10-01 21:10] LABS: Urine Chlamydia NOT DETECTED
== END ==
PROVIDERS: Family Provider Family Medicine; PCP Family Medicine; Referring Provider Family Medicine; Visit Provider Family Medicine
DX: Z11.3 Encounter for screening for infections with a predominantly sexual mode of transmission (principal)
CPT/HCPCS: 87491; 87591

== ENCOUNTER → 2022-11-02 15:16 | Outpatient (CLI) | payer OTHER, SELFPAY ==
--- NOTE | 2022-11-02 15:17 | DI.US.S_ITS ---
PROCEDURE: US PELVIC COMPLETE INDICATIONS: IUD PLACEMENT TECHNIQUE: Real-time scanning was performed of the pelvic organs, with image documentation. Additional endovaginal scanning was necessary due to incomplete visualization of the adnexal and endometrial structures by transabdominal scanning. COMPARISON: None. FINDINGS: Uterus: Uterus is anteverted and normal in size at 6.4 x 3.0 x 4.1 cm. The myometrium is homogeneous. The endometrium measures 7 mm combined thickness. The IUD is appropriately located within uterine fundus. Ovaries: The right ovary measures 2.7 x 1.8 x 1.7 cm, with a calculated ovarian volume of 4.3 cc. The left ovary measures 3.4 x 2.0 x 2.7 cm, with a calculated ovarian volume of 9.4 cc. The ovaries have a normal sonographic appearance. No adnexal masses are seen. Other: No pathologic free abdominal or pelvic fluid. IMPRESSION: IUD in expected location in uterine fundus. Dictated by: Natasha Saleh M.D. on 11/02/2022 at 16:48 Approved by: Natasha Saleh M.D. on 11/02/2022 at 16:50
== END ==
PROVIDERS: Family Provider Family Medicine; PCP Family Medicine; Referring Provider Family Medicine; Visit Provider Family Medicine
DX: T83.32XA Displacement of intrauterine contraceptive device, initial encounter (principal)
CPT/HCPCS: 76830; 76856; 93975

== ENCOUNTER 2023-04-20 10:30 | Outpatient (RCR) | payer OTHER, SELFPAY ==
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
--- NOTE | 2022-09-02 17:00 | PT.OPPOC ---
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/22) Maternal care for other abnormalities of gravid uterus, unspecified trimester (09/02/22) Weakness (09/02/22) Visit Care Team Role Provider Type Kristin Verde MD Attending Provider Physician Family Provider Primary Care Provider Referring Provider Specialty: Family Practice Address: [address] [place] [address] Email: [email or web address] Plan Of Care PT-OP-T Assessment and Plan Start: 09/02/22 07:58 Freq: Status: Active Protocol: Document 09/02/22 10:33 REPLACED BY [facility] (Rec: 09/02/22 16:33 REPLACED BY [facility] [id number]) Physical Therapy Assessment Rehab Potential Rehabilitation Potential Excellent Evaluation Complexity Number of Personal Factors/Comorbidities 0 Number of Body Systems Impaired 1-2 Clinical Presentation at Evaluation Stable Impairments Impairments Activity Tolerance,Functional Activities,Pain,Soft Tissue Mobility,Strength,Tone Other Impairments urinary urgency, pelvic pain Goals 3 Impairment Decreased endurance of the pelvic floor, pt becomes fatigued quickly and needs adductor assist to be able to sustain a pelvic floor contraction up to 5 seconds Short Term Goal (STG) Michael is able to isolate her pelvic floor and sustain a pelvic floor contraction x 10 seconds in supine STG Duration 5 weeks Dining Room Host Goal (LTG) Michael is able to sustain a pelvic floor contraction in standing 5-10 seconds LTG Duration 12 weeks 2 Impairment Right sided pelvic pain and tightness rated 2-3/10 that is there with return to stand from a squatting positions such as when squatting down to sheepskin pickler the laundry. Dining Room Host Goal (LTG) Michael reports no pelvic discomfort with the transition from squat to stand LTG Duration 12 weeks 1 Impairment pelvic floor weakness Short Term Goal (STG) Michael is educated on a HEP of progressive strengthening for her core and pelvic floor STG Duration 4 weeks Nursing Home Goal (LTG) Michael demonstrates improved strength of the pelvic floor musculature to grade 3 or better for all robles of the levator ani. Michael no longer feels weakness standing from a squat position and is able to return to paddleboarding and longer walks LTG Duration 12 weeks Assessment Summary Assessment Alana is a 37 year old female 1 para 1 with date of delivery 05/24/22 referred to PT for pelvic floor strengthening. Pt did have a second degree perineal tear with vaginal delivery. After her baby was born and she was pushing to deliver the placenta there was membranes stuck to the fundus of the uterus and a uterine inversion occurred. Alana was taken to the ER for a D&C and to have her uterus placed back in her pelvic cavity. She required 2 units of blood and was placed on bed rest x 8 weeks. She has been supplementing with iron and is feeling better at this point. She notes that she was experiencing urinary incontinence and pain however this is slowly improving. At this point she is feeling urinary urgency. When she squats to get her laundry she notes pelvic pressure/pain on the right side and feels weak when attempting to stand. She has slowly been returning to walking but does feel out of breath especially walking up hill. At this point she is wanting to start returning to a strengthening and exercise routine of walking, swimming, and paddle boarding but she is wanting guidance on how much to push herself as she does not want to injure herself or place undo stress on her uterus. With exam today Michael tests 1/5 MMT for the anterior pelvic floor and 2/5 for lateral and posterior robles. She is tender across the right lateral wall. There is some muscle guarding present in the left lateral wall but no tenderness. The cervix is palpated with a grade 1 uterine prolapse. EMG biofeedback was initiated today and resting tone was slightly elevated at 2.7 uv. Michael fatigued quickly with endurance holds of the pelvic floor and a small ball was used as an assist. She tolerated this well. Michael is a good candidate for Pelvic floor PT to work towards improving her endurance and strength of her pelvic floor for optimal pelvic organ support. Physical Therapy Plan Frequency and Duration Frequency of Treatment Every Other Week Duration of treatment (weeks) 12 Plan of Care Start Date 09/02/22 Plan of Care End Date 11/25/22 Therapeutic Interventions Therapeutic Interventions Home Exercise Program,Manual Therapy,Patient/Caregiver Education,Self-Care/Home Management,Soft Tissue Mobilization,Therapeutic Exercises Modalities Biofeedback Next Visit Focus/Plan Next Note Type Treatment Note Next Visit Plan EMG biofeedback for pelvic floor recruitment working on endurance holds, give pt hip lateral rotation exercises to start working the lateral side robles and begin abdominal stabilization exercises Plan of Care Dates Plan of Care Start Date 09/02/22 Plan of Care End Date 11/25/22 Electronically Signed by: Andreea Bravo, PT 09/07/22 0656 If you are in agreement with this Plan of Care, please return a signed and dated copy. I have reviewed this Plan of Care and certify that the skilled therapy services above are required to meet the patient?s needs. Physician Signature Date Printed Name and Credentials Clinical Instructor Signature Printed Name and Credentials
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
--- NOTE | 2022-12-16 14:31 | PT.OPPOC ---
Physical, Occupational & Speech Therapy At 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 Plan Of Care PT-OP-T Assessment and Plan Start: 09/02/22 07:58 Freq: Status: Active Protocol: Document 12/16/22 10:37 [facility] (Rec: 12/16/22 14:28 [facility] [id number]) Physical Therapy Assessment Goals 3 Impairment Decreased endurance of the pelvic floor, pt becomes fatigued quickly and needs adductor assist to be able to sustain a pelvic floor contraction up to 5 seconds Short Term Goal (STG) Michael is able to isolate her pelvic floor and sustain a pelvic floor contraction x 10 seconds in supine excellent progress STG Duration 5 weeks Fpc Goal (LTG) Michael is able to sustain a pelvic floor contraction in standing 5-10 seconds goal not yet met LTG Duration 12 weeks 2 Impairment Right sided pelvic pain and tightness rated 2-3/10 that is there with return to stand from a squatting positions such as when squatting down to garbage pick 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 Fpc Goal (LTG) Michael reports no pelvic discomfort with the transition from squat to stand This has improved greatly, there is still some discomfort mcfp up but I was able to add in slight hip abduction today and this improved symptoms greatly LTG Duration 12 weeks 1 Impairment pelvic floor weakness Short Term Goal (STG) Michael is educated on a HEP of progressive strengthening for her core and pelvic floor excellent progress and core program is updated with each visit STG Duration 4 weeks Content Coordinator Goal (LTG) Michael demonstrates improved strength of the pelvic floor musculature to grade 3 or better for all rolbes of the levator ani. Michael no longer feels weakness standing from a squat position and is able to return to paddleboarding and longer walks Michael has returned to biking with her electric bike, she is working towards longer walks LTG Duration 12 weeks Assessment Summary Assessment Michael does well with adding in hip stability, after her supine hip roll outs she dropped in her resting tone to 3 uv. I added in squats with theraband and we discusses slight hip abduction coming out of her squat and this decreased the pain she was feeling in her pelvic floor. Her average strength of levator ani endurance holds is better today as well She would benefit from continued PT Physical Therapy Plan Frequency and Duration Frequency of Treatment Every Other Week Duration of treatment (weeks) 12 Plan of Care Start Date 12/16/22 Plan of Care End Date 03/03/23 Therapeutic Interventions Therapeutic Interventions Home Exercise Program,Manual Therapy,Patient/Caregiver Education,Self-Care/Home Management,Soft Tissue Mobilization,Therapeutic Exercises Modalities Biofeedback Next Visit Focus/Plan Next Note Type Treatment Note Next Visit Plan continue with NMES for the pelvic floor, emg biofeedback for pelvic floor endurance holds, and core strengthening Plan of Care Plan of Care Start Date 12/16/22 Plan of Care End Date 03/03/23 Electronically Signed by: Andreea Bravo, PT 12/16/22 2806 If you are in agreement with this Plan of Care, please return a signed and dated copy. I have reviewed this Plan of Care and certify that the skilled therapy services above are required to meet the patient?s needs. Physician Signature Date Printed Name and Credentials Clinical Instructor Signature Printed Name and Credentials
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
--- NOTE | 2023-03-17 14:34 | PT.OPPOC ---
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) Maternal care for other abnormalities of gravid uterus, unspecified trimester (03/17/23) Weakness (03/17/23) Visit Care Team Role Provider Type Kristin Verde MD Attending Provider Physician Family Provider Primary Care Provider Referring Provider Specialty: Family Practice Address: [address] [place] [address], [facility] Email: [email or web address] Plan Of Care PT-OP-T Assessment and Plan Start: 09/02/22 07:58 Freq: Status: Active Protocol: Document 03/17/23 09:03 [facility] (Rec: 03/17/23 09:47 [facility] [id number]) Physical Therapy Assessment Goals 3 Impairment Decreased endurance of the pelvic floor, pt becomes fatigued quickly and needs adductor assist to be able to sustain a pelvic floor contraction up to 5 seconds Short Term Goal (STG) Michael is able to isolate her pelvic floor and sustain a pelvic floor contraction x 10 seconds in supine goal met STG Duration 5 weeks Health Promotion Coordinator Goal (LTG) Michael is able to sustain a pelvic floor contraction in standing 5-10 seconds goal not yet met LTG Duration 12 weeks 2 Impairment Right sided pelvic pain and tightness rated 2-3/10 that is there with return to stand from a squatting positions such as 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 Health Promotion Coordinator Goal (LTG) Michael reports no pelvic discomfort with the transition from squat to stand This has improved greatly, there is still some discomfort mcc up but I was able to add in slight hip abduction today and this improved symptoms greatly LTG Duration 12 weeks 1 Impairment pelvic floor weakness Short Term Goal (STG) Michael is educated on a HEP of progressive strengthening for her core and pelvic floor excellent progress and core program is updated with each visit STG Duration 4 weeks Health Promotion Coordinator Goal (LTG) Michael demonstrates improved strength of the pelvic floor musculature to grade 3 or better for all robles of the levator ani. Michael no longer feels weakness standing from a squat position and is able to return to paddleboarding and longer walks Michael has returned to biking with her electric bike, she is working towards longer walks LTG Duration 12 weeks Assessment Summary Assessment Michael has been seen x 6 visits in Physical Therapy for pelvic floor strengthening post . She has not been seen since January 20 as was was sick with covid and had a chronic cough for over 3 weeks which set her back some with her symptoms. Overall she is no longer guarded on the right side of the levator ani and she is able to contract all robles of the levator ani. She has improved her strength of the lateral robles. The anterior wall is still weaker and I have been using NMES with Michael to improve her sensation of the anterior wall . She would benefit from continued PT. Physical Therapy Plan Frequency and Duration Frequency of Treatment 1x/Week Duration of treatment (weeks) 12 Plan of Care Start Date 03/17/23 Plan of Care End Date 06/09/23 Therapeutic Interventions Therapeutic Interventions Home Exercise Program,Manual Therapy,Patient/Caregiver Education,Self-Care/Home Management,Soft Tissue Mobilization,Therapeutic Exercises Modalities Biofeedback Next Visit Focus/Plan Next Note Type Treatment Note Next Visit Plan continue working on progressing pelvic floor strength especially the anterior wall. Work on progressing abdominal core strength next visit Plan of Care Dates Plan of Care Start Date 03/17/23 Plan of Care End Date 06/09/23 Electronically Signed by: Andreea Bravo, PT 03/17/23 8727 If you are in agreement with this Plan of Care, please return a signed and dated copy. I have reviewed this Plan of Care and certify that the skilled therapy services above are required to meet the patient?s needs. Physician Signature Date Printed Name and Credentials Clinical Instructor Signature Printed Name and Credentials
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
== END 2023-08-08 14:27 | disposition home or self-care (01) ==
LOC: PHYS 10:30
PROVIDERS: Family Provider Family Medicine; PCP Family Medicine; Referring Provider Family Medicine; Visit Provider Family Medicine
DX: O34.599 Maternal care for other abnormalities of gravid uterus, unspecified trimester (principal); N85.5 Inversion of uterus; N39.41 Urge incontinence; N81.84 Pelvic muscle wasting; R53.1 Weakness
CPT/HCPCS: 87491; 87591; 97110; 97112; 97140; 97161; 97535